=== PATIENT | male | born 1980 | race Caucasian/White ===

== ENCOUNTER 2017-10-28 05:45 | Day surgery (SDC) | payer BC ==
[~2017-10-28] VITALS: Ht 185.4 cm; Wt 72.6 kg
[2017-10-28] MEDS ORDERED: MAPAP325 MG PO (08:38)
[2017-10-28] MEDS ORDERED: OXYCODON-ACETA1 EAC2 PO (08:38)
[2017-10-28] MEDS ORDERED: MOTRIN IB200 MG PO (08:39)
--- NOTE | 2017-10-29 09:44 | OR ---
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 PROCEDURES: 1. Exam under anesthesia. 2. Excision of perianal skin 3 x 2 cm, left lateral anal rectal area. 3. Excisional biopsies of anal epithelium, right posterior and right anterior areas. ANESTHESIA: Spinal with sedation; Vira Crawford CRNA and local 10 mL of 0.25% Marcaine with epinephrine. 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 This was excised under local anesthesia in the office setting with good relief of his symptoms and pain. As always, the specimen was sent for pathology, which demonstrated anal intraepithelial neoplasm level 1 with positive margin. He has recovered fully and the edema and so forth of the excision site have healed up and he is now here for excision of the site for negative margin as well as random biopsies of the other areas of anorectum to assess for anal intraepithelial neoplasia. He understands as does his the risks of bleeding, infection, postoperative pain, wound disruption, other unforeseen complications and wish to proceed. FINDINGS: The area of scarring from the excision was quite minimal. A small amount of tissue was slightly irregular in the area and wide excision was undertaken approximately 3 cm in length and 2 cm in width, excising all remotely suspicious soft tissue. Full-thickness excision was undertaken. The wound was closed with interrupted 4-0 chromic sutures. Elliptical excision in the right posterior and right anterior area was undertaken as Electronically Signed By: LYNDA BUCHANAN MD 10/29/17 0944 PATIENT NAME: CARMEN CAZARES OPERATIVE REPORT DATE OF : 78 REPORT #: [id number] PHYSICIAN: LYNDA BUCHANAN MD PCP: NO PRIMARY CARE PHYSICIAN REPORT IS CONFIDENTIAL AND NOT TO BE RELEASED WITHOUT AUTHORIZATION [facility] [address], [place] [address] Signed well. The tissue looked grossly normal. DESCRIPTION OF PROCEDURE: The patient was brought to the operating room after undergoing a spinal anesthetic (saddle-block type). He was able to move from the stretcher to the operating room table on his own. He was placed in the prone position with careful padding of pressure points undertaken. He was given intravenous sedation additionally. Preoperative antibiotics of cefoxitin and Flagyl had been given. Sequential compression device stockings used and heparin subcutaneously administered by the shed boss. The buttocks were taped apart and minimal clipping was required in the perianal area. It was prepared with a Betadine scrub and Betadine solution. The area of prior excision was barely perceptible. It was marked with a marking pen and about 5 mL of 0.25% Marcaine was injected beneath it to elevate the skin from the underlying subcutaneous tissue. Elliptical excision was undertaken of the tissue that had some irregular surface appearance to it with a clinically negative margin. Hemostasis was assured with electrocautery. The wound was then closed with interrupted 4-0 chromic suture. The right posterior and right anterior anorectal areas were examined and appeared to be grossly normal. Allis clamps were used to elevate the skin and excision undertaken with a 15-blade in both of these areas. Both areas were closed with interrupted 4-0 chromic. A 10 mL of 0.25% Marcaine with epinephrine injected in the anorectal area for postoperative analgesic benefit. There was no untoward bleeding. The patient was ultimately allowed to emerge from sedation, rolled into the supine position and taken to recovery room in good condition. BLOOD LOSS: Minimal. COMPLICATIONS: None. Lynda Buchanan MD JM/MODL /[id number] Electronically Signed By: LYNDA BUCHANAN MD 10/29/17 0944 PATIENT NAME: CARMEN CAZARES OPERATIVE REPORT DATE OF : 78 REPORT #: [id number] PHYSICIAN: LYNDA BUCHANAN MD PCP: NO PRIMARY CARE PHYSICIAN REPORT IS CONFIDENTIAL AND NOT TO BE RELEASED WITHOUT AUTHORIZATION [facility] [address] [place] [address] Nikolas Vel[place] [address] Signed cc: Dieter Cole DO Copies: DIETER COLE DO ~ Electronically Signed By: LYNDA BUCHANAN MD 10/29/17 0944 PATIENT NAME: CARMEN CAZARES OPERATIVE REPORT DATE OF : 78 REPORT #: [id number] PHYSICIAN: LYNDA BUCHANAN MD PCP: NO PRIMARY CARE PHYSICIAN REPORT IS CONFIDENTIAL AND NOT TO BE RELEASED WITHOUT AUTHORIZATION
== END 2017-10-28 09:05 | disposition home or self-care (01) ==
LOC: OPS 05:45 → DS 05:45
PROVIDERS: Surgery
PROC: 0DBQXZZ Excision of Anus, External Approach (ICD-10-PCS; 2017-10-28)
PROC: 0DBQ0ZX Excision of Anus, Open Approach, Diagnostic (ICD-10-PCS; principal; 2017-10-28 06:45)
DX: K62.82 Dysplasia of anus (principal); L08.9 Local infection of the skin and subcutaneous tissue, unspecified; Z88.2 Allergy status to sulfonamides; Z98.890 Other specified postprocedural states
CPT/HCPCS: 00902; J0694; J1644; J1885; J2250; J2405; J2704; J3010; J7120